=== PATIENT | female | born 1950 | race Caucasian/White ===

== ENCOUNTER 2017-01-19 17:27 | Emergency (ER) | payer OTHER ==
[~2017-01-19] VITALS: Ht 162.6 cm; Wt 59.0 kg
[~2017-01-19 17:27] MED LIST: CYCL-36 PO; HYDR-3533 PO; IBUP-232 PO; PRIL20CA PO; TEMA15 PO
[2017-01-19 17:30] VITALS: BP 156/89; PULSE 86; RESP 16; TEMP 97.5; O2SAT 97
[2017-01-19] MEDS ORDERED: TEMA15CA PO (17:46)
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
[2017-01-19] MEDS ORDERED: TRAM50TA PO (18:33)
[2017-01-19] MEDS ORDERED: DICL75TA PO (18:33)
--- NOTE | 2017-01-19 18:34 | RADHPO ---
EXAM DATE/TIME: 01/19/2017 18:08 [facility] COMPARISON: No previous studies available for comparison. INDICATIONS : Punch in nose RADIATION DOSE: 29.96 CTDIvol (mGy) MEDICAL HISTORY : Chronic obstructive pulmonary disease. SURGICAL HISTORY : Sinus surgery ENCOUNTER: Initial ACUITY: 1 day PAIN SCORE: 2/10 LOCATION: facial TECHNIQUE: Volumetric scanning of the facial bones was performed. Using automated exposure control and adjustme nt of the mA and/or kV according to patient size, radiation dose was kept as low as reasonably achiev able to obtain optimal diagnostic quality images. FINDINGS: ORBITS: The orbital and infraorbital osseous structures are intact. The retroconal structures have a normal configuration. No radiopaque foreign bodies are seen. NASAL BONE: The nasal bone and maxillary spine are intact ZYGOMATIC ARCHES: Symmetric without evidence of fracture. SINUSES: There is chronic sinus disease in the left maxillary sinus. The right maxillary sinus is clear. The e thmoid, frontal and sphenoid sinuses are clear. NASAL CAVITY: Nasal septal deviation to the right. SOFT TISSUES: No radiopaque foreign bodies seen. No soft-tissue swelling is seen. INTRACRANIAL: No intracranial air seen. CRIBIFORM PLATE: Grossly intact. CONCLUSION: No acute bony fracture. Chronic sinus disease in the left maxillary sinus. Reed Weiss MD on January 19, 2017 at 18:29 Board Certified Radiologist. This report was verified electronically.
== END 2017-01-19 18:41 | disposition home or self-care (01) ==
LOC: PHEFT 17:27
DX: S00.33XA Contusion of nose, initial encounter (principal); F41.9 Anxiety disorder, unspecified; J44.9 Chronic obstructive pulmonary disease, unspecified; W51.XXXA Accidental striking against or bumped into by another person, initial encounter
CPT/HCPCS: 70486

== ENCOUNTER 2017-07-24 16:49 | Observation (INO) | payer MEDICARE, OTHER ==
[~2017-07-24] VITALS: Ht 162.6 cm; Wt 61.0 kg
[~2017-07-24 16:49] MED LIST changes: -CYCL-36 PO; +DICL75TA PO; -HYDR-3533 PO; -IBUP-232 PO; -PRIL20CA PO; -TEMA15 PO; +TEMA15CA PO
[2017-07-24 17:09] VITALS: BP 186/84; PULSE 60; RESP 16; TEMP 97.3; O2SAT 97
[2017-07-24] MEDS ORDERED: ACETAMINOPHEN/HYDROcodone 325 MG/5 MG TAB PO ONE (18:15)
[2017-07-24] MEDS ORDERED: SODIUM CHLORIDE 0.9% FLUSH 10 ML FLUSH IVF PRN (18:15)
[2017-07-24] MEDS ORDERED: ASPIRIN 81 MG CHEW TAB PO ONE (18:15)
[2017-07-24] MEDS ORDERED: IBUP800T23 PO (18:31)
[2017-07-24] MEDS ORDERED: HYDR-3516 PO (18:31)
[2017-07-24 18:34] LABS: AUTOMATED NEUTROPHIL # 5.7 TH/MM3 (1.8-7.7); BASOPHIL # 0.1 TH/MM3 (0-0.2); BASOPHIL % 0.6 % (0.0-2.0); EOSINOPHIL # 0.1 TH/MM3 (0-0.4); EOSINOPHIL % 1.5 % (0.0-4.0); HEMATOCRIT 37.7 % (35.0-46.0); HEMO FLAGS DIFF FINAL; LYMPH % 29.1 % (9.0-44.0); LYMPHOCYTE # 2.7 TH/MM3 (1.0-4.8); MEAN CELL VOLUME 93.3 FL (80.0-100.0); MEAN CORPUSCULAR HEMOGLOBIN 30.4 PG (27.0-34.0); MEAN CORPUSCULAR HGB CONC 32.5 % (32.0-36.0); NEUT % 61.8 % (16.0-70.0); PLATELET COUNT 337 TH/MM3 (150-450); RED BLOOD COUNT 4.04 MIL/MM3 (4.00-5.30); RED CELL DISTRIBUTION WIDTH 12.9 % (11.6-17.2); WHITE BLOOD COUNT 9.3 TH/MM3 (4.0-11.0)
[2017-07-24 18:37] VITALS: O2SAT 99
[2017-07-24 18:44] VITALS: BP_SYST 182; BP_SYST 188; BP_DIAS 88; BP_DIAS 90; PULSE 68
[2017-07-24 18:46] LABS: CHLORIDE 106 MEQ/L (98-107); POTASSIUM 4.1 MEQ/L (3.5-5.1); SODIUM (NA) 138 MEQ/L (136-145)
--- NOTE | 2017-07-24 18:48 | PD ---
HPI Chief Complaint: Chest Pain Time Seen by Provider: 17:59 Travel History International Travel<30 days: No Contact w/Intl Traveler<30days: No Traveled to known affect area: No History of Present Illness HPI Patient is a 67-year-old female comes in complaining of chest pain and right shoulder pain. She says she has had shoulder pain for the past week, and has been seeing the chiropractor, but it has not improved. She says she feels a pressure sensation in the front of her chest. She has had nausea, but no vomiting. She denies shortness of breath. She says she has been overall feeling just very run down. She also feels like the right side of her back is swollen. Eyes numbness or tingling. She denies fever, but has had chills. PFSH Past Medical History Anxiety: Yes Cardiovascular Problems: No COPD: Yes Diabetes: No Diminished Hearing: No Endocrine: No Gastrointestinal Disorders: No Genitourinary: No Hiatal Hernia: No Immune Disorder: No Insomnia: Yes Musculoskeletal: No Neurologic: No Psychiatric: Yes (ANXIETY) Reproductive: No Respiratory: Yes (COPD) Immunizations Current: No Thyroid Disease: No Tetanus Vaccination: Unknown Influenza Vaccination: No ?: Not Past Surgical History Abdominal Surgery: Yes (HYSTERECTOMY) Genitourinary Surgery: Yes (NONCANCEROUS RIGHT KIDNEY MASS) Hysterectomy: Yes Thoracic Surgery: Yes (RIGHT UPPER LOBECTOMY NOV 2014) Tonsillectomy: Yes Other Surgery: Yes ("RENAL MASS REMOVED MICROSCOPICALLY", SINUS SURGERY) Social History Alcohol Use: Yes ("COUPLE TIMES PER WEEK") Tobacco Use: Yes (1/2 ppd) Substance Use: No Allergies-Medications (Allergen,Severity, Reaction): Coded Allergies: Sulfa (Sulfonamide Antibiotics) (Unverified Allergy, Severe, Rash, ) HIVES meperidine (Unverified Allergy, Severe, Hallucinations, 07/24/17) morphine (Unverified Allergy, Severe, Itching, 07/24/17) amoxicillin (Verified Allergy, Unknown, 07/24/17) clavulanic acid (Verified Allergy, Unknown, 07/24/17) fluticasone furoate (Verified Allergy, Unknown, 07/24/17) ketorolac (Verified Allergy, Unknown, 07/24/17) omeprazole (Verified Allergy, Unknown, 07/24/17) tramadol (Verified Allergy, Unknown, 07/24/17) vilanterol (Verified Allergy, Unknown, 07/24/17) Reported Meds & Prescriptions Reported Meds & Active Scripts Active Reported Ibuprofen 800 Mg Tab 800 Mg PO Q8H PRN Temazepam 15 Mg Cap 15 Mg PO HS PRN Review of Systems Except as stated in HPI: all other systems reviewed are Neg General / Constitutional: Positive: Chills, No: Fever HENT: No: Headaches, Lightheadedness Cardiovascular: Positive: Chest Pain or Discomfort Respiratory: No: Shortness of Breath Gastrointestinal: Positive: Nausea, No: Vomiting, Abdominal Pain Genitourinary: No: Dysuria Musculoskeletal: No: Edema Skin: No Rash, No Change in Pigmentation Neurologic: Positive: Weakness, No: Dizziness Physical Exam Narrative GENERAL: Awake and alert, in no acute distress. SKIN: Focused skin assessment warm/dry. HEAD: Atraumatic. Normocephalic. EYES: Pupils equal and round. No scleral icterus. ENT: Mucous membranes pink and moist. NECK: Trachea midline. No JVD. CARDIOVASCULAR: Regular rate and rhythm. No murmur appreciated. RESPIRATORY: No accessory muscle use. Clear to auscultation. Breath sounds equal bilaterally. GASTROINTESTINAL: Abdomen soft, non-tender, nondistended. MUSCULOSKELETAL: No obvious deformities. No clubbing. No cyanosis. No edema. No spinal tenderness. No pain with movement of the right shoulder. No bony tenderness. NEUROLOGICAL: Awake and alert. No obvious cranial nerve deficits. Motor grossly within normal limits. Normal speech. PSYCHIATRIC: Appropriate mood and affect; insight and judgment normal. Data Data Last Documented VS Vital Signs Date Time Temp Pulse Resp B/P (MAP) Pulse Ox O2 Delivery O2 Flow Rate FiO2 07/24/17 18:44 68 182/90 (120) 188/88 (121) 07/24/17 18:37 99 07/24/17 17:09 97.3 16 Orders Orders Ckmb (Isoenzyme) Profile (07/24/17 18:08) Complete Blood Count With Diff (07/24/17 18:08) Comprehensive Metabolic Panel (07/24/17 18:08) Prothrombin Time / Inr (Pt) (07/24/17 18:08) Act Partial Throm Time (Ptt) (07/24/17 18:08) Troponin I (07/24/17 18:08) Ecg Monitoring (07/24/17 18:08) Bilateral Bp Monitoring (07/24/17 18:08) Iv Access Insert/Monitor (07/24/17 18:08) Oximetry (07/24/17 18:08) Oxygen Administration (07/24/17 18:08) Aspirin Chew (Aspirin Chew) (07/24/17 18:15) Sodium Chloride 0.9% Flush (Ns Flush) (07/24/17 18:15) Chest, Pa & Lat (07/24/17 18:08) Shoulder, Complete (>2vws) (07/24/17 ) Acetamin-Hydrocod 325-5 Mg (Gilson 5-325 (07/24/17 18:15) Admit Order (Ed Use Only) (07/24/17 19:47) Education Teacher / Telemetry LIDYA.Q8H (07/24/17 19:47) Diet Heart Healthy (07/25/17 Breakfast) Notify Dr: Other (07/24/17 19:47) Activity Bed Rest With Brp (07/24/17 19:47) Vital Signs (Adult) Q4H (07/24/17 19:47) Cardiac Rhythm .As Directed (07/24/17:47) Notify Dr: Other .PRN (07/24/17 19:47) Notify Parameters (07/24/17 19:47) Resp Oxygen Nasal Cannula (07/24/17 ) Ckmb (Isoenzyme) Profile (07/24/17 21:15) Ckmb (Isoenzyme) Profile (07/25/17 00:15) Troponin I (07/24/17 21:15) Troponin I (07/25/17 00:15) Electrocardiogram (07/24/17 21:15) Electrocardiogram (07/25/17 00:15) ^ Obtain (07/24/17 19:47) Sodium Chloride 0.9% Flush (Ns Flush) (07/24/17 20:00) Sodium Chloride 0.9% Flush (Ns Flush) (07/24/17 21:00) Nitroglycerin Sl (Nitrostat Sl) (07/24/17 20:00) Education Teacher / Telemetry LIDYA.Q8H (07/24/17 19:47) Labs Laboratory Tests Test 07/24/17 18:17 White Blood Count 9.3 TH/MM3 Red Blood Count 4.04 MIL/MM3 Hemoglobin 12.3 GM/DL Hematocrit 37.7 % Mean Corpuscular Volume 93.3 FL Mean Corpuscular Hemoglobin 30.4 PG Mean Corpuscular Hemoglobin Concent 32.5 % Red Cell Distribution Width 12.9 % Platelet Count 337 TH/MM3 Mean Platelet Volume 7.9 FL Neutrophils (%) (Auto) 61.8 % Lymphocytes (%) (Auto) 29.1 % Monocytes (%) (Auto) 7.0 % Eosinophils (%) (Auto) 1.5 % Basophils (%) (Auto) 0.6 % Neutrophils # (Auto) 5.7 TH/MM3 Lymphocytes # (Auto) 2.7 TH/MM3 Monocytes # (Auto) 0.7 TH/MM3 Eosinophils # (Auto) 0.1 TH/MM3 Basophils # (Auto) 0.1 TH/MM3 CBC Comment DIFF FINAL Differential Comment Prothrombin Time 10.3 SEC Prothromb Time International Ratio 0.9 RATIO Activated Partial Thromboplast Time 25.4 SEC Blood Urea Nitrogen 17 MG/DL Creatinine 0.84 MG/DL Random Glucose 93 MG/DL Total Protein 6.8 GM/DL Albumin 3.8 GM/DL Calcium Level 9.1 MG/DL Alkaline Phosphatase 59 U/L Aspartate Amino Transf (AST/SGOT) 15 U/L Alanine Aminotransferase (ALT/SGPT) 23 U/L Total Bilirubin 0.2 MG/DL Sodium Level 138 MEQ/L Potassium Level 4.1 MEQ/L Chloride Level 106 MEQ/L Carbon Dioxide Level 26.6 MEQ/L Anion Gap 5 MEQ/L Estimat Glomerular Filtration Rate 68 ML/MIN Total Creatine Kinase 56 U/L Troponin I LESS THAN 0.02 NG/ML [facility] Medical Decision Making Medical Screen Exam Complete: Yes Emergency Medical Condition: Yes Medical Record Reviewed: Yes Interpretation(s) ECG shows sinus bradycardia at 56. No ST elevation or depression. Differential Diagnosis Muscle strain versus ACS versus NSTEMI versus STEMI Narrative Course Patient is a 67-year-old female who comes in complaining of chest pain and shoulder pain. Exam shows no acute abnormalities. IV established, labs sent. Patient connected to the ekg monitor tech. Given aspirin and a Lortab for pain. Labs show no acute abnormalities. CXR and shoulder XR show no acute abnormalities. Patient will be placed in chest pain center for further management. Diagnosis Primary Impression: Chest pain Qualified Codes: R07.9 - Chest pain, unspecified Admitting Information Admitting Physician Requests: Observation Scripts Hydrocodone-Acetaminophen (Gilson) 5-325 mg Tab 1 TAB PO Q6H Y for PAIN, #30 TAB 0 Refills Prov: Colton Talavera MD 07/25/17 Condition: Stable Shonda Toth MD Jul 24, 2017 18:48
[2017-07-24 18:49] LABS: ANION GAP 5 MEQ/L (5-15); APTT (PATIENT) 25.4 SEC (24.3-30.1); BICARBONATE 26.6 MEQ/L (21.0-32.0); BLOOD UREA NITROGEN 17 MG/DL (7-18); INTERNATIONAL NORMALIZED RATIO 0.9 RATIO; PROTHROMBIN TIME - PATIENT 10.3 SEC (9.8-11.6)
--- NOTE | 2017-07-24 18:51 | RADRPT ---
EXAM DATE/TIME: 07/24/2017 18:20 [facility] COMPARISON: CHEST EXPIRATION ONLY, November 11, 2014, 10:29. INDICATIONS : Chest pain. MEDICAL HISTORY : Chronic obstructive pulmonary disease. SURGICAL HISTORY : None. ENCOUNTER: Initial ACUITY: 1 week PAIN SCORE: 5/10 LOCATION: Bilateral chest FINDINGS: PA and lateral views of the chest demonstrate the lungs to be symmetrically aerated without evidence of mass, infiltrate or effusion. There is hyperaeration bilaterally. The cardiomediastinal contours are unremarkable. Osseous structures are intact. CONCLUSION: No acute disease. No significant change has occurred. Reed Weiss MD on July 24, 2017 at 18:48 Board Certified Radiologist. This report was verified electronically.
[2017-07-24 18:52] LABS: ALT (GPT) 23 U/L (10-53); AST (GOT) 15 U/L (15-37)
[2017-07-24 18:53] LABS: GLOMERULAR FILTRATION RATE 68 ML/MIN (>89)
--- NOTE | 2017-07-24 18:53 | RADRPT ---
EXAM DATE/TIME: 07/24/2017 18:20 [facility] COMPARISON: No previous studies available for comparison. INDICATIONS : Right shoulder pain. MEDICAL HISTORY : None. SURGICAL HISTORY : None. ENCOUNTER: Initial ACUITY: 1 week PAIN SCORE: 6/10 LOCATION: Right shoulder. FINDINGS: Multiple view examination of the right shoulder demonstrates no evidence of fracture or dislocation. The glenohumeral and acromioclavicular joints are maintained. There is normal range of motion betwe en internal and external rotation. Bony mineralization is normal. CONCLUSION: Unremarkable exam Reed Weiss MD on July 24, 2017 at 18:51 Board Certified Radiologist. This report was verified electronically.
[2017-07-24 18:54] LABS: TOTAL BILIRUBIN ADULT 0.2 MG/DL (0.2-1.0)
[2017-07-24 18:55] LABS: ALKALINE PHOSPHATASE 59 U/L (45-117)
[2017-07-24 19:20] LABS: CREATINE KINASE 56 U/L (26-192)
[2017-07-24] MEDS ORDERED: NITROGLYCERIN 0.4 MG SL 25 TABS/BTL SL PRN (20:00)
[2017-07-24] MEDS ORDERED: SODIUM CHLORIDE 0.9% FLUSH 10 ML FLUSH IV FLUSH PRN (20:00)
[2017-07-24] MEDS: SODIUM CHLORIDE 0.9% FLUSH 10 ML FLUSH IV FLUSH SCH (21:14)
[2017-07-24 21:17] VITALS: BP 142/82; PULSE 59; RESP 16; O2SAT 98
[2017-07-24 21:40] VITALS: O2SAT 98
[2017-07-24 21:58] LABS: CREATINE KINASE 50 U/L (26-192)
[2017-07-24 22:00] VITALS: BP 139/77; PULSE 51; RESP 20; TEMP 96; O2SAT 96
[2017-07-24] MEDS ORDERED: TEMAZEPAM 7.5 MG CAP PO ONE (23:00)
[2017-07-25] VITALS: BP 135/41; PULSE 87; RESP 20; TEMP 98.2; O2SAT 100
[2017-07-25 01:03] LABS: CREATINE KINASE 49 U/L (26-192)
[2017-07-25 04:00] VITALS: BP 112/66; PULSE 56; RESP 18; TEMP 96.7; O2SAT 95
[2017-07-25 07:01] VITALS: PULSE 56
[2017-07-25 08:34] VITALS: BP 129/71; PULSE 58; RESP 16; TEMP 96.6; O2SAT 96
[2017-07-25 09:02] VITALS: PULSE 58
[2017-07-25] MEDS: SODIUM CHLORIDE 0.9% FLUSH 10 ML FLUSH IV FLUSH SCH (09:02)
--- NOTE | 2017-07-25 10:13 | HHI.HP ---
[facility] Promise De La Torre MD Admission Diagnosis chest pain Diagnoses: (1) Chest pain Travel History International Travel<30 Days: No Contact w/Intl Traveler <30 Da: No Traveled to Known Affected Are: No History of Present Illness Mrs. Caicedo is a 67-year-old female. She came in the hospital secondary to central chest pain. The pain was tight and severe. This was preceded by a 1-2 weeks of pain which was caused by subluxation of the right shoulder and subluxation of 3 of her costosternal joints. She has seen a chiropractor for this and have these joints work done twice. No past family history of coronary artery disease. Patient does have risk factors smoking and is currently smoking about one half pack per day. She also has a history of non-small cell lung cancer with a lung resection and scar tissue related to this. 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 No other complaints today. Review of Systems Constitutional: DENIES: Fatigue, Fever, Chills Eyes: DENIES: Diplopia, Eye inflammation, Eye pain Ears, nose, mouth, throat: DENIES: Tinnitus, Hearing loss, Vertigo Respiratory: DENIES: Apneas, Cough, Wheezing, Shortness of breath Cardiovascular: COMPLAINS OF: Chest pain, DENIES: Palpitations, Syncope Gastrointestinal: DENIES: Abdominal pain, Black stools, Bloody stools Musculoskeletal: COMPLAINS OF: Joint pain, Muscle aches, Stiffness, Joint Swelling Integumentary: DENIES: Abnormal pigmentation, Pruritus, Rash Hematologic/lymphatic: DENIES: Bruising, Lymphadenopathy Immunologic/allergic: DENIES: Eczema, Urticaria Neurologic: DENIES: Abnormal gait, Headache, Localized weakness, Paresthesias Psychiatric: DENIES: Anxiety, Confusion, Hallucinations Past Family Social History Past Medical History Non-small cell lung cancer Benign kidney metastases Past Surgical History Lung resection Laparoscopic renal resection Reported Medications Reported Meds & Active Scripts Active Reported Ibuprofen 800 Mg Tab 800 Mg PO Q8H PRN Hydrocodone-Acetaminophen 5-325 mg Tab 1 Tab PO Q6H PRN Temazepam 15 Mg Cap 15 Mg PO HS PRN Allergies: Coded Allergies: Sulfa (Sulfonamide Antibiotics) (Unverified Allergy, Severe, Rash, ) HIVES meperidine (Unverified Allergy, Severe, Hallucinations, 07/24/17) morphine (Unverified Allergy, Severe, Itching, 07/24/17) amoxicillin (Verified Allergy, Unknown, 07/24/17) clavulanic acid (Verified Allergy, Unknown, 07/24/17) fluticasone furoate (Verified Allergy, Unknown, 07/24/17) ketorolac (Verified Allergy, Unknown, 07/24/17) omeprazole (Verified Allergy, Unknown, 07/24/17) tramadol (Verified Allergy, Unknown, 07/24/17) vilanterol (Verified Allergy, Unknown, 07/24/17) Active Ordered Medications Administered Medications Medications (Trade) Dose Ordered Sig/Lidia Route PRN Reason Start Time Stop Time Status Last Admin Dose Admin Sodium Chloride (NS Flush) 2 ml BID IV FLUSH 07/24/17 21:00 07/25/17 09:02 Family History Mother had hypertension Social History Occasional alcohol use Patient smokes one half pack per day No Illicit drug abuse Physical Exam Vital Signs Vital Signs Date Time Temp Pulse Resp B/P (MAP) Pulse Ox O2 Delivery O2 Flow Rate FiO2 07/25/17 08:34 96.6 58 16 129/71 (90) 96 07/25/17 04:00 96.7 56 18 112/66 (81) 95 07/25/17 00:00 98.2 87 20 135/41 (72) 100 07/24/17 22:00 96.0 51 20 139/77 (97) 96 07/24/17 21:40 98 21 07/24/17 21:40 07/24/17 21:17 59 16 142/82 (102) 98 Room Air 07/24/17 18:44 68 182/90 (120) 188/88 (121) 07/24/17 18:37 99 07/24/17 17:09 97.3 60 16 186/84 (118) 97 Physical Exam GENERAL: NAD, A&Ox3 HEAD: Normocephalic. NECK: Supple, trachea midline. No lymphadenopathy. EYES: No scleral icterus. No injection or drainage. CARDIOVASCULAR: Regular rate and rhythm without murmurs, gallops, or rubs. RESPIRATORY: Breath sounds equal bilaterally. No accessory muscle use. GASTROINTESTINAL: Abdomen soft, non-tender, nondistended. MUSCULOSKELETAL: No cyanosis, or edema. Chest tenderness with palpation around sternum. SKIN: Warm and dry. NEURO: No focal neurological deficitis. Laboratory Laboratory Tests Test 07/24/17 18:17 07/24/17 21:15 07/25/17 00:16 White Blood Count 9.3 Red Blood Count 4.04 Hemoglobin 12.3 Hematocrit 37.7 Mean Corpuscular Volume 93.3 Mean Corpuscular Hemoglobin 30.4 Mean Corpuscular Hemoglobin Concent 32.5 Red Cell Distribution Width 12.9 Platelet Count 337 Mean Platelet Volume 7.9 Neutrophils (%) (Auto) 61.8 Lymphocytes (%) (Auto) 29.1 Monocytes (%) (Auto) 7.0 Eosinophils (%) (Auto) 1.5 Basophils (%) (Auto) 0.6 Neutrophils # (Auto) 5.7 Lymphocytes # (Auto) 2.7 Monocytes # (Auto) 0.7 Eosinophils # (Auto) 0.1 Basophils # (Auto) 0.1 CBC Comment DIFF FINAL Differential Comment Prothrombin Time 10.3 Prothromb Time International Ratio 0.9 Activated Partial Thromboplast Time 25.4 Blood Urea Nitrogen 17 Creatinine 0.84 Random Glucose 93 Total Protein 6.8 Albumin 3.8 Calcium Level 9.1 Alkaline Phosphatase 59 Aspartate Amino Transf (AST/SGOT) 15 Alanine Aminotransferase (ALT/SGPT) 23 Total Bilirubin 0.2 Sodium Level 138 Potassium Level 4.1 Chloride Level 106 Carbon Dioxide Level 26.6 Anion Gap 5 Estimat Glomerular Filtration Rate 68 Total Creatine Kinase 56 50 49 Troponin I LESS THAN 0.02 LESS THAN 0.02 LESS THAN 0.02 Result Diagram: 07/24/17181607/24/171816 Caprini VTE Risk Assessment Caprini VTE Risk Assessment: No/Low Risk (score <= 1) Caprini Risk Assessment Model Point Value = 1 Point Value = 2 Point Value = 3 Point Value = 5 Age 41-60 Minor surgery BMI > 25 kg/m2 Swollen legs Varicose veins or History of unexplained or recurrent spontaneous Oral contraceptives or hormone replacement Sepsis (< 1 month) Serious lung disease, including pneumonia (< 1 month) Abnormal pulmonary function Acute myocardial infarction Congestive heart failure (< 1 month) History of inflammatory bowel disease Medical patient at bed rest Age 61-74 Arthroscopic surgery Major open surgery (> 45 min) Laparoscopic surgery (> 45 min) Malignancy Confined to bed (> 72 hours) Immobilizing plaster cast Central venous access Age >= 75 History of VTE Family history of VTE Factor V Leiden Prothrombin [id number] Lupus anticoagulant Anticardiolipin antibodies Elevated serum homocysteine Heparin-induced thrombocytopenia Other congenital or acquired thrombophilia Stroke (< 1 month) Elective arthroplasty Hip, pelvis, or leg fracture Acute spinal cord injury (< 1 month) Prophylaxis Regimen Total Risk Factor Score Risk Level Prophylaxis Regimen 0-1 Low Early ambulation 2 Moderate Order ONE of the following: *Sequential Compression Device (SCD) *Heparin 5000 units SQ BID 3-4 Higher Order ONE of the following medications: *Heparin 5000 units SQ TID *Enoxaparin/Lovenox 40 mg SQ daily (WT < 150 kg, CrCl > 30 mL/min) *Enoxaparin/Lovenox 30 mg SQ daily (WT < 150 kg, CrCl > 10-29 mL/min) *Enoxaparin/Lovenox 30 mg SQ BID (WT < 150 kg, CrCl > 30 mL/min) AND/OR *Sequential Compression Device (SCD) 5 or more Highest Order ONE of the following medications: *Heparin 5000 units SQ TID (Preferred with Epidurals) *Enoxaparin/Lovenox 40 mg SQ daily (WT < 150 kg, CrCl > 30 mL/min) *Enoxaparin/Lovenox 30 mg SQ daily (WT < 150 kg, CrCl > 10-29 mL/min) *Enoxaparin/Lovenox 30 mg SQ BID (WT < 150 kg, CrCl > 30 mL/min) AND *Sequential Compression Device (SCD) Assessment and Plan Problem List: (1) Chest pain ICD Code: R07.9 - Chest pain, unspecified Assessment and Plan Assessment and plan 67-year-old female admitted secondary to chest pain Chest pain Evaluate for ACS Follow cardiac enzymes Aspirin daily When necessary oxygen When necessary morphine for pain. When necessary nitroglycerin Follow on telemetry Stress test planned given normal cardiac enzymes and EKGs History of lung cancer Follow as an outpatient DVT prophylaxis SCDs Colton Talavera MD Jul 25, 2017 10:13
[2017-07-25] MEDS ORDERED: REGADENOSON INJ 0.4 MG/5 ML SYR IV ONE (10:47)
--- NOTE | 2017-07-25 12:28 | EKG ---
Date Performed: 07/24/2017 Time Performed: 21:28:07 PTAGE: 67 years EKG: SINUS BRADYCARDIA LOW QRS VOLTAGE ABNORMAL ECG PREVIOUS TRACING : 07/24/2017 16.57 Compared to prior tracing no significant change DOCTOR: Caroline Dang Interpretating Date/Time 07/25/2017 12:23:24
--- NOTE | 2017-07-25 12:28 | EKG ---
Date Performed: 07/24/2017 Time Performed: 16:57:27 PTAGE: 67 years EKG: SINUS BRADYCARDIA LOW QRS VOLTAGE ABNORMAL ECG PREVIOUS TRACING : 01/06/2015 16.39 Compared to prior tracing no significant change DOCTOR: Caroline Dang Interpretating Date/Time 07/25/2017 12:23:16
--- NOTE | 2017-07-25 12:28 | EKG ---
Date Performed: 07/24/2017 Time Performed: 23:56:30 PTAGE: 67 years EKG: SINUS BRADYCARDIA LOW QRS VOLTAGE ABNORMAL ECG PREVIOUS TRACING : 07/24/2017 21.28 Compared to prior tracing no significant change DOCTOR: Caroline Dang Interpretating Date/Time 07/25/2017 12:23:33
--- NOTE | 2017-07-25 12:34 | RADRPT ---
EXAM DATE/TIME: 07/25/2017 10:36 [facility] COMPARISON: No previous studies available for comparison. INDICATIONS : Chest pain for 1 day. Angina. DOSE: 25.9 mCi Tc99m Myoview at stress. 8.2 mCi Tc99m Myoview at rest. 0.4 mg Lexiscan STRESS SYMPTOMS: Headache. EJECTION FRACTION: > 70% MEDICAL HISTORY : Chronic obstructive pulmonary disease. SURGICAL HISTORY : Lobectomy. Hysterectomy. ENCOUNTER: Initial ACUITY: 1 day PAIN SCALE: 2/10 LOCATION: Bilateral chest TECHNIQUE: The patient underwent pharmacologic stress with infusion of prescribed dose. Continuous ECG tracing was monitored during stress. Gated SPECT imaging was performed after stress and conventional SPECT i maging was performed at rest. The examination was performed on a SPECT/CT scanner, both attenuation and non-corrected datasets were reviewed. FINDINGS: DISTRIBUTION: The maximum perfused segment at stress is in the anterior wall. PERFUSION STUDY: The pattern of perfusion at stress is within normal limits. GATED STUDY: There is intact wall motion and thickening without hypokinetic or dyskinetic segments. CONCLUSION: No reversible defects observed to suggest acute ischemia. RISK CATEGORY: Low Abner Ann Jr., MD on July 25, 2017 at 12:31 Board Certified Radiologist. This report was verified electronically.
[2017-07-25] MEDS ORDERED: NORC5TAB PO (15:56)
--- NOTE | 2017-07-25 18:26 | TR ---
Date Performed: 07/25/2017 Time Performed: 11:01:26 DOCTOR: Niki Arango DRUG LIST: CLINICAL HISTORY: REASON FOR TEST: REASON FOR ENDING: OBSERVATION: CONCLUSION: Lexiscan stress test was performed under standard four minute protocol. Radionuclid e was injected one minute prior to ending the test. No electrocardiographic abormalities were present to suggest ischemia. Nuclear imaging and interpretation are pending. COMMENTS:
[2017-07-26] MEDS ORDERED: HYDR12.57 PO (18:40)
== END 2017-07-25 16:40 | disposition home or self-care (01) ==
LOC: PHED 16:49 → PHEDA 19:52 → PH3A 21:41
PROVIDERS: ADMIT Hospitalist; ATTEND Hospitalist
DX: R07.9 Chest pain, unspecified (principal); C79.00 Secondary malignant neoplasm of unspecified kidney and renal pelvis; C34.90 Malignant neoplasm of unspecified part of unspecified bronchus or lung; J44.9 Chronic obstructive pulmonary disease, unspecified; R94.31 Abnormal electrocardiogram [ECG] [EKG]; F17.210 Nicotine dependence, cigarettes, uncomplicated
CPT/HCPCS: 71020; 73030; 78452; 80053; 82550; 84484; 85025; 85610; 85730; 93005; 93017; 99285; A9502; G0378; J2785

== ENCOUNTER 2017-07-26 17:57 | Emergency (ER) | payer MEDICARE ==
[~2017-07-26] VITALS: Ht 162.6 cm; Wt 59.2 kg
[~2017-07-26 17:57] MED LIST changes: -DICL75TA PO; +IBUP800T23 PO; +NORC5TAB PO
[2017-07-26 18:07] VITALS: BP 188/85; PULSE 68; RESP 16; TEMP 97.4; O2SAT 97
[2017-07-26] MEDS ORDERED: HYDR12.57 PO (18:40)
--- NOTE | 2017-07-26 18:40 | PD ---
HPI Chief Complaint: Hypertension Time Seen by Provider: 18:23 Travel History International Travel<30 days: No Contact w/Intl Traveler<30days: No Traveled to known affect area: No History of Present Illness HPI patient 67-year-old female presents emergency department for evaluation of elevated blood pressure. The patient was just seen here on July 24 was admitted for chest pain rule out had a nuclear medicine scan which was negative for ischemia. She was discharged home to follow up with her primary care physician. She is concerned that she is still having some pain particularly in the right flank. She states this pain is new since she was discharged today however she describes it as swollen on the right side of her back without radiation. This was the exact way she described it a few days ago to my colleague in the emergency department. Otherwise she denies any focalized weakness, headache, chest pain, shortness of breath, abdominal pain. PFSH Past Medical History Hx Anticoagulant Therapy: No Anxiety: Yes Cardiovascular Problems: No COPD: Yes Diabetes: No Diminished Hearing: No Endocrine: No Gastrointestinal Disorders: No Genitourinary: No Hiatal Hernia: No Immune Disorder: No Insomnia: Yes Musculoskeletal: No Neurologic: No Psychiatric: Yes (ANXIETY) Reproductive: No Respiratory: Yes (copd ?) Immunizations Current: No Thyroid Disease: No ?: Not Past Surgical History Abdominal Surgery: Yes (HYSTERECTOMY) Genitourinary Surgery: Yes (NONCANCEROUS RIGHT KIDNEY MASS) Hysterectomy: Yes Thoracic Surgery: Yes (RIGHT UPPER LOBECTOMY NOV 2014) Tonsillectomy: Yes Other Surgery: Yes ("RENAL MASS REMOVED MICROSCOPICALLY", SINUS SURGERY) Social History Alcohol Use: Yes ("COUPLE TIMES PER WEEK") Tobacco Use: Yes (1/2 ppd) Substance Use: No Allergies-Medications (Allergen,Severity, Reaction): Coded Allergies: Sulfa (Sulfonamide Antibiotics) (Unverified Allergy, Severe, Rash, ) HIVES meperidine (Unverified Allergy, Severe, Hallucinations, 07/26/17) morphine (Unverified Allergy, Severe, Itching, 07/26/17) amoxicillin (Verified Allergy, Unknown, 07/26/17) clavulanic acid (Verified Allergy, Unknown, 07/26/17) fluticasone furoate (Verified Allergy, Unknown, 07/26/17) ketorolac (Verified Allergy, Unknown, 07/26/17) omeprazole (Verified Allergy, Unknown, 07/26/17) tramadol (Verified Allergy, Unknown, 07/26/17) vilanterol (Verified Allergy, Unknown, 07/26/17) Reported Meds & Prescriptions Reported Meds & Active Scripts Active Hydrochlorothiazide 12.5 Mg Cap 12.5 Mg PO DAILY [place] (Hydrocodone-Acetaminophen) 5-325 mg Tab 1 Tab PO Q6H PRN Reported Ibuprofen 800 Mg Tab 800 Mg PO Q8H PRN Temazepam 15 Mg Cap 15 Mg PO HS PRN Review of Systems Except as stated in HPI: all other systems reviewed are Neg Physical Exam Narrative GENERAL: Well-developed well-nourished no obvious distress. SKIN: Focused skin assessment warm/dry. HEAD: Atraumatic. Normocephalic. EYES: Pupils equal and round. No scleral icterus. No injection or drainage. ENT: No nasal bleeding or discharge. Mucous membranes pink and moist. NECK: Trachea midline. No JVD. CARDIOVASCULAR: Regular rate and rhythm. No murmur appreciated. RESPIRATORY: No accessory muscle use. Clear to auscultation. Breath sounds equal bilaterally. GASTROINTESTINAL: Abdomen soft, non-tender, nondistended. Hepatic and splenic margins not palpable. MUSCULOSKELETAL: No obvious deformities. No clubbing. No cyanosis. No edema. NEUROLOGICAL: Awake and alert. No obvious cranial nerve deficits. Motor grossly within normal limits. Normal speech. PSYCHIATRIC: Appropriate mood and affect; insight and judgment normal. Data Data Last Documented VS Vital Signs Date Time Temp Pulse Resp B/P (MAP) Pulse Ox O2 Delivery O2 Flow Rate FiO2 07/26/17 18:50 84 17 156/77 (103) 98 Room Air 07/26/17 18:07 97.4 Orders Orders Ed Discharge Order (07/26/17 18:40) [facility] Medical Decision Making Medical Screen Exam Complete: Yes Emergency Medical Condition: Yes Differential Diagnosis Asymptomatic elevated blood pressure, hypertensive emergency unlikely, anxiety, right flank pain, muscular skeletal pain. Narrative Course Patient roomed emergency department, examination of her right flank shows no abnormalities, she does appear somewhat anxious. There is no indication of end organ failure and she started been admitted once this month for her chest discomfort. At this time I think that cardiac issues have been adequately ruled out. The patient will be started on small dose HCTZ and discussed need follow-up with her primary care physician in the immediate future. She is stable for discharge. Diagnosis Primary Impression: Elevated blood pressure reading Additional Impression: Right flank pain Referrals: Promise De La Torre MD Med/Other Pt SpecificInfo: Prescription(s) given Scripts Hydrochlorothiazide (Hydrochlorothiazide) 12.5 Mg Cap 12.5 MG PO DAILY, #20 CAP 0 Refills Prov: Juan Pablo Mason MD 07/26/17 Disposition: 01 DISCHARGE HOME Condition: Stable Juan Pablo Mason MD Jul 26, 2017 18:40
[2017-07-26 18:50] VITALS: BP 156/77; PULSE 84; RESP 17; O2SAT 98
== END 2017-07-26 19:00 | disposition home or self-care (01) ==
LOC: PHED 17:57
DX: R03.0 Elevated blood-pressure reading, without diagnosis of hypertension (principal); R10.9 Unspecified abdominal pain; J44.9 Chronic obstructive pulmonary disease, unspecified; Z72.0 Tobacco use
CPT/HCPCS: 99283

== ENCOUNTER 2018-01-12 17:57 | Emergency (ER) | payer MEDICARE ==
[~2018-01-12] VITALS: Ht 162.6 cm; Wt 59.0 kg
[~2018-01-12 17:57] MED LIST changes: +HYDR12.57 PO; +IBUP1TAB7 PO; -IBUP800T23 PO
[2018-01-12 18:06] VITALS: BP 142/75; PULSE 74; RESP 16; TEMP 97.9; O2SAT 97
[2018-01-12] MEDS ORDERED: SYMB160A INH (18:23)
[2018-01-12] MEDS ORDERED: FLUT1SPR5 EACH NARE (18:23)
[2018-01-12 18:48] LABS: BASOPHIL % 0.5 % (0.0-2.0); EOSINOPHIL # 0.2 TH/MM3 (0-0.4); EOSINOPHIL % 2.2 % (0.0-4.0); HEMATOCRIT 37.1 % (35.0-46.0); HEMOGLOBIN 12.3 GM/DL (11.6-15.3); LYMPH % 34.6 % (9.0-44.0); LYMPHOCYTE # 3.2 TH/MM3 (1.0-4.8); MEAN CELL VOLUME 92.8 FL (80.0-100.0); MEAN CORPUSCULAR HEMOGLOBIN 30.8 PG (27.0-34.0); MEAN CORPUSCULAR HGB CONC 33.1 % (32.0-36.0); MONO % 8.3 % (0.0-8.0); MONOCYTE # 0.8 TH/MM3 (0-0.9); NEUT % 54.4 % (16.0-70.0); PLATELET COUNT 345 TH/MM3 (150-450); RED BLOOD COUNT 3.99 MIL/MM3 (4.00-5.30); RED CELL DISTRIBUTION WIDTH 12.7 % (11.6-17.2); WHITE BLOOD COUNT 9.2 TH/MM3 (4.0-11.0)
--- NOTE | 2018-01-12 18:55 | RADRPT ---
EXAM DATE/TIME: 01/12/2018 18:38 [facility] COMPARISON: CHEST PA & LAT, July 24, 2017, 18:20. INDICATIONS : Chest tightness and pressure for 2 months. Lower left chest pain since yesterday. MEDICAL HISTORY : Chronic obstructive pulmonary disease. Carcinoma, lung. SURGICAL HISTORY : Right upper lobectomy. ENCOUNTER: Initial ACUITY: 2 months PAIN SCORE: 7/10 LOCATION: Left lower chest FINDINGS: Hyperinflation. Cardiomegaly. No consolidation or effusion. Mild degenerative changes of the spine. Clips of the right hilum from previous right upper lobectomy. CONCLUSION: No acute disease. Jason Bello MD on January 12, 2018 at 18:52 Board Certified Radiologist. This report was verified electronically.
[2018-01-12 18:58] LABS: CHLORIDE 108 MEQ/L (98-107); SODIUM (NA) 142 MEQ/L (136-145)
[2018-01-12 19:01] LABS: PROTHROMBIN TIME - PATIENT 10.1 SEC (9.8-11.6)
[2018-01-12 19:03] LABS: CALCIUM 9.3 MG/DL (8.5-10.1)
[2018-01-12 19:04] LABS: ALBUMIN 3.5 GM/DL (3.4-5.0); BICARBONATE 28.1 MEQ/L (21.0-32.0); BLOOD UREA NITROGEN 19 MG/DL (7-18); GLUCOSE,RANDOM 101 MG/DL (74-106)
[2018-01-12 19:05] VITALS: BP 138/72; PULSE 60; RESP 18; O2SAT 95
[2018-01-12 19:07] LABS: ALT (GPT) 18 U/L (10-53); AST (GOT) 12 U/L (15-37); GLOMERULAR FILTRATION RATE 50 ML/MIN (>89)
[2018-01-12 19:08] LABS: TOTAL BILIRUBIN ADULT 0.2 MG/DL (0.2-1.0)
[2018-01-12 19:09] LABS: TOTAL PROTEIN 6.8 GM/DL (6.4-8.2)
[2018-01-12 19:10] LABS: ALKALINE PHOSPHATASE 64 U/L (45-117)
[2018-01-12 19:12] LABS: TROPONIN I LESS THAN 0.02 NG/ML (0.02-0.05)
[2018-01-12] MEDS ORDERED: NAPR-810 PO (19:36)
--- NOTE | 2018-01-12 19:37 | PD ---
HPI Chief Complaint: Pain: Acute or Chronic Time Seen by Provider: 18:21 Travel History International Travel<30 days: No Contact w/Intl Traveler<30days: No Traveled to known affect area: No History of Present Illness HPI This is a 67-year-old female presented the ER complaining of chest tightness for the last 2 weeks. Patient states that [id number] over bed and since then she has been complaining of tenderness on her chest. Tenderness is worse when she presses on her chest wall. Patient has history of lung cancer and is worried that she has it again. Patient denies any weight loss or loss of appetite or difficulty swallowing or cough or shortness of breath. PFSH Past Medical History Hx Anticoagulant Therapy: No Anxiety: Yes Cancer: Yes Cardiovascular Problems: No COPD: Yes Diabetes: No Diminished Hearing: No Endocrine: No Gastrointestinal Disorders: No Genitourinary: No Hiatal Hernia: No Immune Disorder: No Insomnia: Yes Musculoskeletal: No Neurologic: No Psychiatric: Yes (ANXIETY) Reproductive: No Respiratory: Yes (copd, LUNG CA) Immunizations Current: No Thyroid Disease: No Tetanus Vaccination: Unknown Influenza Vaccination: No ?: Not Past Surgical History Abdominal Surgery: Yes (HYSTERECTOMY) Endocrine Surgery: Yes (thyroid biopsy) Genitourinary Surgery: Yes (NONCANCEROUS RIGHT KIDNEY MASS) Hysterectomy: Yes Thoracic Surgery: Yes (RIGHT UPPER LOBECTOMY NOV 2014) Tonsillectomy: Yes Other Surgery: Yes ("RENAL MASS REMOVED MICROSCOPICALLY", SINUS SURGERY) Social History Alcohol Use: Yes ("COUPLE TIMES PER WEEK") Tobacco Use: Yes (10/15 ppd) Substance Use: No Allergies-Medications (Allergen,Severity, Reaction): Coded Allergies: Sulfa (Sulfonamide Antibiotics) (Unverified Allergy, Severe, Rash, 01/12/18) HIVES meperidine (Unverified Allergy, Severe, Hallucinations, 01/12/18) morphine (Unverified Allergy, Severe, Itching, 01/12/18) amoxicillin (Verified Allergy, Unknown, 01/12/18) clavulanic acid (Verified Allergy, Unknown, 01/12/18) fluticasone furoate (Verified Allergy, Unknown, 01/12/18) ketorolac (Verified Allergy, Unknown, 01/12/18) omeprazole (Verified Allergy, Unknown, 01/12/18) tramadol (Verified Allergy, Unknown, 01/12/18) vilanterol (Verified Allergy, Unknown, 01/12/18) Reported Meds & Prescriptions Reported Meds & Active Scripts Active EC-Naprosyn (Naproxen) 500 Mg Tabdr 500 Mg PO BID Reported Flonase Nasal [place] (Fluticasone Nasal [place]) 50 Mcg/Act [place] 100 Mcg EACH NARE BID Flonase Nasal [place] (Fluticasone Nasal [place]) 50 Mcg/Act [place] 50 Mcg EACH NARE BID Symbicort Inh (Budesonide/Formoterol Fumarate) 160-4.5 Mcg/Act Aero 2 Puff INH Q12HR Temazepam 15 Mg Cap 15 Mg PO HS PRN Review of Systems Except as stated in HPI: all other systems reviewed are Neg Physical Exam Narrative GENERAL: Alert oriented 3 no acute distress SKIN: Focused skin assessment warm/dry. HEAD: Atraumatic. Normocephalic. EYES: Pupils equal and round. No scleral icterus. No injection or drainage. ENT: No nasal bleeding or discharge. Mucous membranes pink and moist. NECK: Trachea midline. CARDIOVASCULAR: Chest wall tenderness on palpation of the ribs and sternum, regular rate and rhythm. No murmur appreciated. RESPIRATORY: No accessory muscle use. Clear to auscultation. Breath sounds equal bilaterally. GASTROINTESTINAL: Abdomen soft, non-tender, nondistended. Hepatic and splenic margins not palpable. MUSCULOSKELETAL: No obvious deformities. No clubbing. No cyanosis. No edema. NEUROLOGICAL: Awake and alert. No obvious cranial nerve deficits. Motor grossly within normal limits. Normal speech. PSYCHIATRIC: Appropriate mood and affect; insight and judgment normal. Data Data Last Documented VS Vital Signs Date Time Temp Pulse Resp B/P (MAP) Pulse Ox O2 Delivery O2 Flow Rate FiO2 01/12/18 19:43 65 16 136/74 (94) 98 01/12/18 18:06 97.9 Orders Orders Prothrombin Time / Inr (Pt) (01/12/18 18:21) Comprehensive Metabolic Panel (01/12/18 18:21) Complete Blood Count With Diff (01/12/18 18:21) Act Partial Throm Time (Ptt) (01/12/18 18:21) Troponin I (01/12/18 18:21) Chest, Pa & Lat (01/12/18 ) Thyroid Stimulating Hormone (01/12/18 18:21) Ed Discharge Order (01/12/18 19:35) Labs Laboratory Tests Test 01/12/18 18:34 White Blood Count 9.2 TH/MM3 Red Blood Count 3.99 MIL/MM3 Hemoglobin 12.3 GM/DL Hematocrit 37.1 % Mean Corpuscular Volume 92.8 FL Mean Corpuscular Hemoglobin 30.8 PG Mean Corpuscular Hemoglobin Concent 33.1 % Red Cell Distribution Width 12.7 % Platelet Count 345 TH/MM3 Mean Platelet Volume 8.0 FL Neutrophils (%) (Auto) 54.4 % Lymphocytes (%) (Auto) 34.6 % Monocytes (%) (Auto) 8.3 % Eosinophils (%) (Auto) 2.2 % Basophils (%) (Auto) 0.5 % Neutrophils # (Auto) 5.0 TH/MM3 Lymphocytes # (Auto) 3.2 TH/MM3 Monocytes # (Auto) 0.8 TH/MM3 Eosinophils # (Auto) 0.2 TH/MM3 Basophils # (Auto) 0.0 TH/MM3 CBC Comment DIFF FINAL Differential Comment Prothrombin Time 10.1 SEC Prothromb Time International Ratio 1.0 RATIO Activated Partial Thromboplast Time 25.0 SEC Blood Urea Nitrogen 19 MG/DL Creatinine 1.10 MG/DL Random Glucose 101 MG/DL Total Protein 6.8 GM/DL Albumin 3.5 GM/DL Calcium Level 9.3 MG/DL Alkaline Phosphatase 64 U/L Aspartate Amino Transf (AST/SGOT) 12 U/L Alanine Aminotransferase (ALT/SGPT) 18 U/L Total Bilirubin 0.2 MG/DL Sodium Level 142 MEQ/L Potassium Level 3.9 MEQ/L Chloride Level 108 MEQ/L Carbon Dioxide Level 28.1 MEQ/L Anion Gap 6 MEQ/L Estimat Glomerular Filtration Rate 50 ML/MIN Troponin I LESS THAN 0.02 NG/ML Thyroid Stimulating Hormone 3rd Gen 1.320 uIU/ML [facility] Medical Decision Making Medical Screen Exam Complete: Yes Emergency Medical Condition: Yes Differential Diagnosis Costochondritis, pneumonia, and pneumothorax Narrative Course This is a 67-year-old female presented the ER complaining of chest wall tenderness for the last 2 weeks after she year-old over in bed. Physical examination is benign except for chest wall tenderness and history is consistent with costochondral chest pain. Labs are within normal limits and chest x-ray is unremarkable. I will discharge this patient with his Naprosyn and I recommended that she follow-up with her primary care physician for a mammogram and thyroid examination. Patient understands and agrees to plan of care. Diagnosis Primary Impression: Costochondral joint sprain Qualified Codes: S23.41XA - Sprain of ribs, initial encounter Additional Instructions: Follow-up with primary care physician and return to ER if symptoms change or do not improve. Scripts Naproxen (EC-Naprosyn) 500 Mg Tabdr 500 MG PO BID, #20 TAB 0 Refills Prov: Marquis Enriquez MD 01/12/18 Disposition: 01 DISCHARGE HOME Condition: Stable Marquis Enriquez MD Jan 12, 2018 19:37
[2018-01-12 19:43] VITALS: BP 136/74
== END 2018-01-12 19:57 | disposition home or self-care (01) ==
LOC: PHED 17:57
DX: S23.41XA Sprain of ribs, initial encounter (principal); F41.9 Anxiety disorder, unspecified; J44.9 Chronic obstructive pulmonary disease, unspecified; G47.00 Insomnia, unspecified; F17.200 Nicotine dependence, unspecified, uncomplicated; Z85.118 Personal history of other malignant neoplasm of bronchus and lung; Z79.899 Other long term (current) drug therapy; Z88.2 Allergy status to sulfonamides; X58.XXXA Exposure to other specified factors, initial encounter
CPT/HCPCS: 71046; 80053; 84443; 84484; 85025; 85610; 85730; 99284

== ENCOUNTER 2018-01-22 05:57 | Emergency (ER) | payer MEDICARE ==
[~2018-01-22] VITALS: Ht 162.6 cm; Wt 59.0 kg
[~2018-01-22 05:57] MED LIST changes: +FLUT1SPR5 EACH NARE; -HYDR12.57 PO; -IBUP1TAB7 PO; +NAPR-810 PO; -NORC5TAB PO; +SYMB160A INH
[2018-01-22 06:03] VITALS: BP 139/69; PULSE 72; RESP 20; TEMP 97.4; O2SAT 99
[2018-01-22] MEDS ORDERED: SODIUM CHLOR 0.9% 1000 ML INJ 1,000 ML IV ONE (06:27)
[2018-01-22] MEDS ORDERED: HYDR-3576 PO (06:29)
[2018-01-22] MEDS ORDERED: HYDROmorphone HCL PF 2 MG/ML VIAL IVS ONE (06:30)
[2018-01-22] MEDS ORDERED: ONDANSETRON HCL 4 MG/2 ML VIAL IV PUSH ONE (06:30)
[2018-01-22] MEDS ORDERED: SODIUM CHLORIDE 0.9% FLUSH 10 ML FLUSH IVF PRN (06:30)
--- NOTE | 2018-01-22 06:33 | PD ---
HPI Chief Complaint: Flank/Kidney Pain Time Seen by Provider: 06:16 Travel History International Travel<30 days: No Contact w/Intl Traveler<30days: No Traveled to known affect area: No History of Present Illness HPI The patient is a 67-year-old female that complains of right flank pain since yesterday afternoon. She denies any dysuria, frequency or urgency. She denies any nausea, vomiting or diarrhea. She has never had urinary stones in the past. She denies any fever. The pain is sharp and a 10/10 in intensity. PFSH Past Medical History Hx Anticoagulant Therapy: No Anxiety: Yes Cancer: Yes Cardiovascular Problems: No COPD: Yes Diabetes: No Diminished Hearing: No Endocrine: No Gastrointestinal Disorders: No Genitourinary: No Hiatal Hernia: No Hypertension: No Immune Disorder: No Insomnia: Yes Musculoskeletal: No Neurologic: No Psychiatric: Yes (ANXIETY) Reproductive: No Respiratory: Yes (copd, LUNG CA) Immunizations Current: No Thyroid Disease: No ?: Not Past Surgical History Abdominal Surgery: Yes (HYSTERECTOMY) Endocrine Surgery: Yes (thyroid biopsy) Genitourinary Surgery: Yes (NONCANCEROUS RIGHT KIDNEY MASS) Hysterectomy: Yes Thoracic Surgery: Yes (RIGHT UPPER LOBECTOMY NOV 2014) Tonsillectomy: Yes Other Surgery: Yes ("RENAL MASS REMOVED MICROSCOPICALLY", SINUS SURGERY) Social History Alcohol Use: Yes ("COUPLE TIMES PER WEEK") Tobacco Use: Yes (1/2 ppd) Substance Use: No Allergies-Medications (Allergen,Severity, Reaction): Coded Allergies: Sulfa (Sulfonamide Antibiotics) (Verified Allergy, Severe, Rash, 01/22/18) HIVES meperidine (Verified Allergy, Severe, Hallucinations, 01/22/18) morphine (Verified Allergy, Severe, Itching, 01/22/18) amoxicillin (Verified Allergy, Unknown, 01/22/18) clavulanic acid (Verified Allergy, Unknown, 01/22/18) fluticasone furoate (Verified Allergy, Unknown, 01/22/18) ketorolac (Verified Allergy, Unknown, 01/22/18) omeprazole (Verified Allergy, Unknown, 01/22/18) tramadol (Verified Allergy, Unknown, 01/22/18) vilanterol (Verified Allergy, Unknown, 01/22/18) Reported Meds & Prescriptions Reported Meds & Active Scripts Active EC-Naprosyn (Naproxen) 500 Mg Tabdr 500 Mg PO BID Reported [place] (Hydrocodone-Acetaminophen) 5-325 mg Tab 1 Tab PO Q6H PRN Flonase Nasal [place] (Fluticasone Nasal [place]) 50 Mcg/Act [place] 100 Mcg EACH NARE BID Flonase Nasal [place] (Fluticasone Nasal [place]) 50 Mcg/Act [place] 50 Mcg EACH NARE BID Symbicort Inh (Budesonide/Formoterol Fumarate) 160-4.5 Mcg/Act Aero 2 Puff INH Q12HR Temazepam 15 Mg Cap 15 Mg PO HS PRN Review of Systems Except as stated in HPI: all other systems reviewed are Neg Physical Exam Narrative GENERAL: The patient is standing up in moderate amount of distress with her right flank pain, her vital signs are normal. She is alert and oriented 3. SKIN: Focused skin assessment warm/dry. No skin rash is present. HEAD: Atraumatic. Normocephalic. EYES: Pupils equal and round. No scleral icterus. No injection or drainage. ENT: No nasal bleeding or discharge. Mucous membranes pink and moist. NECK: Trachea midline. No JVD. CARDIOVASCULAR: Regular rate and rhythm. No murmur appreciated. RESPIRATORY: No accessory muscle use. Clear to auscultation. Breath sounds equal bilaterally. GASTROINTESTINAL: Abdomen soft, non-tender, nondistended. Hepatic and splenic margins not palpable. There is minimal tenderness over the right flank. MUSCULOSKELETAL: No obvious deformities. No clubbing. No cyanosis. No edema. NEUROLOGICAL: Awake and alert. No obvious cranial nerve deficits. Motor grossly within normal limits. Normal speech. PSYCHIATRIC: Appropriate mood and affect; insight and judgment normal. Data Data Last Documented VS Vital Signs Date Time Temp Pulse Resp B/P (MAP) Pulse Ox O2 Delivery O2 Flow Rate FiO2 01/22/18 06:03 97.4 72 20 139/69 (92) 99 Orders Orders Complete Blood Count With Diff (01/22/18 06:27) Comprehensive Metabolic Panel (01/22/18:) Urinalysis - C+S If Indicated (01/22/18:27) Ct Abd/Pel W/O Iv Contrast (01/22/18 06:27) Ecg Monitoring (01/22/18:27) Iv Access Insert/Monitor (01/22/18:27) Hydromorphone Pf Inj (Dilaudid Pf Inj) (01/22/18 06:30) Ondansetron Inj (Zofran Inj) (01/22/18 06:30) Sodium Chloride 0.9% Flush (Ns Flush) (01/22/18 06:30) Sodium Chlor 0.9% 1000 Ml Inj (Ns 1000 M (01/22/18 06:27) Labs Laboratory Tests Test 01/22/18 06:40 [facility]DM Medical Decision Making Medical Screen Exam Complete: Yes Emergency Medical Condition: Yes Medical Record Reviewed: Yes Differential Diagnosis Urinary tract infection, urinary stone, cholelithiasis with colic, cholecystitis , colitis, musculoskeletal pain Narrative Course It is now 0650 and the patient is transferred to Dr. Wise. Tutu Coleman MD Jan 22, 2018 06:32
[2018-01-22 06:51] LABS: BASOPHIL # 0.1 TH/MM3 (0-0.2); BASOPHIL % 1.7 % (0.0-2.0); EOSINOPHIL # 0.1 TH/MM3 (0-0.4); EOSINOPHIL % 1.8 % (0.0-4.0); HEMATOCRIT 39.8 % (35.0-46.0); HEMOGLOBIN 13.1 GM/DL (11.6-15.3); LYMPH % 34.1 % (9.0-44.0); LYMPHOCYTE # 2.5 TH/MM3 (1.0-4.8); MEAN CELL VOLUME 92.7 FL (80.0-100.0); MEAN CORPUSCULAR HEMOGLOBIN 30.6 PG (27.0-34.0); MEAN PLATELET VOLUME 8.2 FL (7.0-11.0); MONO % 7.1 % (0.0-8.0); MONOCYTE # 0.5 TH/MM3 (0-0.9); NEUT % 55.3 % (16.0-70.0); PLATELET COUNT 365 TH/MM3 (150-450); RED BLOOD COUNT 4.29 MIL/MM3 (4.00-5.30); RED CELL DISTRIBUTION WIDTH 12.4 % (11.6-17.2); WHITE BLOOD COUNT 7.2 TH/MM3 (4.0-11.0)
[2018-01-22 07:04] LABS: CHLORIDE 106 MEQ/L (98-107); SODIUM (NA) 140 MEQ/L (136-145)
[2018-01-22 07:07] LABS: CALCIUM 9.5 MG/DL (8.5-10.1)
[2018-01-22 07:08] LABS: ALBUMIN 3.9 GM/DL (3.4-5.0); BICARBONATE 24.7 MEQ/L (21.0-32.0); BLOOD UREA NITROGEN 21 MG/DL (7-18); GLUCOSE,RANDOM 99 MG/DL (74-106)
[2018-01-22 07:11] LABS: ALT (GPT) 18 U/L (10-53); AST (GOT) 13 U/L (15-37); GLOMERULAR FILTRATION RATE 56 ML/MIN (>89)
--- NOTE | 2018-01-22 07:11 | RADRPT ---
EXAM DATE/TIME: 01/22/2018 06:56 [facility] COMPARISON: No previous studies available for comparison. INDICATIONS : Right flank pain. ORAL CONTRAST: No oral contrast ingested. RADIATION DOSE: 4.91 CTDIvol (mGy) MEDICAL HISTORY : Chronic obstructive pulmonary disease. Carcinoma, lung. SURGICAL HISTORY : Hysterectomy. Lobectomy. ENCOUNTER: Initial ACUITY: 1 day PAIN SCALE: 9/10 LOCATION: Right flank TECHNIQUE: Volumetric scanning of the abdomen and pelvis was performed. Using automated exposure control and ad justment of the mA and/or kV according to patient size, radiation dose was kept as low as reasonably achievable to obtain optimal diagnostic quality images. DICOM format image data is available electro nically for review and comparison. FINDINGS: Atherosclerotic calcification of the aorta and iliac vessels are seen. Urinary bladder unremarkable. Small bowel, large bowel, stomach, appendix unremarkable. No adenopathy or aneurysm. Atherosclerotic calcifications of the aorta and iliac vessels are noted. The spleen, pancreas, adrenals, liver, gallb ladder are unremarkable. There is a coarse cortical calcification at the midpole of the right kidney posteriorly measuring 1.2 cm loose to be associated with the mass described in 2010 however those silvia ges are not available for review. No obstructing renal calculi, hydronephrosis or hydroureter. There is scarring at the left lung base. The osseous structures are intact. CONCLUSION: No acute disease. Jason Bello MD on January 22, 2018 at 7:07 Board Certified Radiologist. This report was verified electronically.
[2018-01-22 07:13] LABS: TOTAL BILIRUBIN ADULT 0.5 MG/DL (0.2-1.0)
[2018-01-22 07:14] LABS: ALKALINE PHOSPHATASE 61 U/L (45-117)
[2018-01-22 07:41] VITALS: BP 131/58; PULSE 67; RESP 16; O2SAT 97
[2018-01-22 07:46] LABS: BLOOD, URINE SMALL (NEG); GLUCOSE,URINE NEG (NEG); KETONE, URINE NEG (NEG); NITRITE,URINE NEG (NEG); URINE COLOR YELLOW (YELLW/STRAW); URINE LEUKOCYTE ESTERASE NEG (NEG)
[2018-01-22 07:51] LABS: BILIRUBIN, URINE NEG (NEG)
[2018-01-22 07:53] LABS: BACTERIA, URINE RARE /hpf; WBC, URINE 0-2 /hpf (0-5)
--- NOTE | 2018-01-22 08:17 | PD ---
Physical Exam Date Seen by Provider: Jan 22, 2018 Time Seen by Provider: 08:14 Narrative This 67-year-old female had quite severe right flank pain. The pain started yesterday afternoon and was fairly persistent until she got to the hospital. The pain may have subsided prior to her getting pain medication here. She has no history of kidney stone. 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 She was seen initially by Dr. Coleman who ordered workup for kidney stone. Her urinalysis shows 4-9 red cells but is otherwise negative. Her CT scan does not show any evidence of stones. She is pain-free at this time. Etiology of her pain is not clear though the pain is resolved she does have Lortab at home and will take that if it recurs. She is stable for discharge. She may have passed a stone which was not apparent on the CT Data Data Last Documented VS Vital Signs Date Time Temp Pulse Resp B/P (MAP) Pulse Ox O2 Delivery O2 Flow Rate FiO2 01/22/18 07:41 56 16 01/22/18 07:41 131/58 (82) 97 Room Air 01/22/18 06:03 97.4 Orders Orders Complete Blood Count With Diff (01/22/18 06:27) Comprehensive Metabolic Panel (01/22/18 06:27) Urinalysis - C+S If Indicated (01/22/18 06:27) Ct Abd/Pel W/O Iv Contrast (01/22/18 06:27) Ecg Monitoring (01/22/18 06:27) Iv Access Insert/Monitor (01/22/18 06:27) Hydromorphone Pf Inj (Dilaudid Pf Inj) (01/22/18 06:30) Ondansetron Inj (Zofran Inj) (01/22/18 06:30) Sodium Chloride 0.9% Flush (Ns Flush) (01/22/18 06:30) Sodium Chlor 0.9% 1000 Ml Inj (Ns 1000 M (01/22/18 06:27) Labs Laboratory Tests Test 01/22/18 06:40 01/22/18 07:35 White Blood Count 7.2 TH/MM3 Red Blood Count 4.29 MIL/MM3 Hemoglobin 13.1 GM/DL Hematocrit 39.8 % Mean Corpuscular Volume 92.7 FL Mean Corpuscular Hemoglobin 30.6 PG Mean Corpuscular Hemoglobin Concent 33.0 % Red Cell Distribution Width 12.4 % Platelet Count 365 TH/MM3 Mean Platelet Volume 8.2 FL Neutrophils (%) (Auto) 55.3 % Lymphocytes (%) (Auto) 34.1 % Monocytes (%) (Auto) 7.1 % Eosinophils (%) (Auto) 1.8 % Basophils (%) (Auto) 1.7 % Neutrophils # (Auto) 4.0 TH/MM3 Lymphocytes # (Auto) 2.5 TH/MM3 Monocytes # (Auto) 0.5 TH/MM3 Eosinophils # (Auto) 0.1 TH/MM3 Basophils # (Auto) 0.1 TH/MM3 CBC Comment DIFF FINAL Differential Comment Blood Urea Nitrogen 21 MG/DL Creatinine 1.00 MG/DL Random Glucose 99 MG/DL Total Protein 7.0 GM/DL Albumin 3.9 GM/DL Calcium Level 9.5 MG/DL Alkaline Phosphatase 61 U/L Aspartate Amino Transf (AST/SGOT) 13 U/L Alanine Aminotransferase (ALT/SGPT) 18 U/L Total Bilirubin 0.5 MG/DL Sodium Level 140 MEQ/L Potassium Level 4.0 MEQ/L Chloride Level 106 MEQ/L Carbon Dioxide Level 24.7 MEQ/L Anion Gap 9 MEQ/L Estimat Glomerular Filtration Rate 56 ML/MIN Urine Collection Type CLEAN CATCH Urine Color YELLOW Urine Turbidity CLEAR Urine pH 5.0 Urine Specific [place] GREATER/EQUAL 1.030 Urine Protein NEG mg/dL Urine Glucose (UA) NEG mg/dL Urine Ketones NEG mg/dL Urine Occult Blood SMALL Urine Nitrite NEG Urine Bilirubin NEG Urine Urobilinogen 0.2 MG/DL Urine Leukocyte Esterase NEG Urine RBC 4-9 /hpf Urine WBC 0-2 /hpf Urine Squamous Epithelial Cells 6-8 /hpf Urine Bacteria RARE /hpf Urine Hyaline Casts 10-14 /lpf Microscopic Urinalysis Comment CULT NOT INDICATED Urine Collection Time 07:35 MDM Medical Record Reviewed: Yes Supervised Visit with NARCISA: No Differential Diagnosis Differential includes pyelonephritis, kidney stone, musculoskeletal pain Narrative Course CT is negative for stone urine is negative for pyelonephritis.pain has resolved. She is stable for discharge Diagnosis Primary Impression: Flank pain Disposition: 01 DISCHARGE HOME Condition: Stable Freedom Shay MD Jan 22, 2018 08:17
[2018-01-22 08:37] VITALS: BP 113/60
== END 2018-01-22 08:44 | disposition home or self-care (01) ==
LOC: PHED 05:57
DX: R10.9 Unspecified abdominal pain (principal); F41.9 Anxiety disorder, unspecified; J44.9 Chronic obstructive pulmonary disease, unspecified; G47.00 Insomnia, unspecified; F17.200 Nicotine dependence, unspecified, uncomplicated; Z85.118 Personal history of other malignant neoplasm of bronchus and lung; Z79.51 Long term (current) use of inhaled steroids; Z79.899 Other long term (current) drug therapy; Z88.2 Allergy status to sulfonamides
CPT/HCPCS: 74176; 80053; 81001; 85025; 96361; 96374; 96375; 99284; J1170; J2405; J7030